=== PATIENT | female | born 1950 | race Two or more races ===

== ENCOUNTER 2018-08-12 09:49 | Outpatient (CLI) | payer BC ==
--- NOTE | 2018-08-12 16:30 | Diagnostic Imaging Report ---
Indication: Abdominal pain, palpable subxiphoid/epigastric mass Technique: Spiral acquisitions obtained through the abdomen and pelvis. No oral contrast utilized, per emergency room physician request No IV contrast utilized, per referring physician request.. Multiplanar reconstructions were generated. Total dose length product 1081.77 mGycm. CTDIvol(s) 16.82,16.14 mGy. Dose reduction achieved using automated exposure control Comparison: None Findings: There is very slight weakness and possible slight disruption of the rectus abdominis tendon approximately 13 cm below the xiphoid, and there is focal protrusion of the abdominal wall fat into this by about 8 mm this measures approximately 3 x 2 cm in diameter. Superior to this, the rectus abdominis muscle protrudes slightly anteriorly but is otherwise intact. Deep to it is the left lobe of the liver. Other than the small focal weakness described above, no ventral hernia is demonstrated. There is no evidence of umbilical hernia. The appendix is not definitely visualized, but no findings to suggest acute appendicitis are evident. There are distal colonic diverticula. No evidence of diverticulitis. No small bowel distention. No free or loculated intraperitoneal gas or fluid is evident. There is a small sliding-type hiatal hernia. The remainder of the stomach is unremarkable. The duodenum is unremarkable. No definite peritoneal abnormality is demonstrated. Lack of IV contrast limits assessment of the solid organs. The gallbladder is surgically absent. The liver, bile ducts, pancreas, adrenals, right kidney are unremarkable. The spleen demonstrates numerous granulomatous calcifications. The left kidney demonstrates a fluid attenuation lesion with complex shape coming off of the lower pole. No renal or ureteral calculi, hydronephrosis, or hydroureter. The bladder is unremarkable. No pelvic mass or adenopathy. No retroperitoneal or mesenteric mass or adenopathy. The uterus is absent, presumably postsurgically. The included lung bases demonstrate some atelectatic changes on the left. The bones demonstrate degenerative spondylosis changes Impression: No acute abnormality No findings to explain stated clinical history of palpable epigastric/subxiphoid mass. Small focal weakness bordering on a very small fat-containing hernia of the rectus abdominis tendon, well below the xiphoid Left lower pole fluid attenuation presumed cyst. However, complex shape and calcified septation indicates that this is a complicated cyst, and further evaluation with ultrasound, versus contrast CT, is recommended Colonic diverticulosis. 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
== END 2018-08-12 11:49 | disposition home or self-care (01) ==
LOC: CAT 09:49
DX: R19.09 Other intra-abdominal and pelvic swelling, mass and lump (principal); K46.9 Unspecified abdominal hernia without obstruction or gangrene; K57.90 Diverticulosis of intestine, part unspecified, without perforation or abscess without bleeding; Z90.710 Acquired absence of both cervix and uterus; Z90.49 Acquired absence of other specified parts of digestive tract; M47.9 Spondylosis, unspecified; K44.9 Diaphragmatic hernia without obstruction or gangrene
CPT/HCPCS: 74176